=== PATIENT | female | born 1960 | race Caucasian/White ===

== ENCOUNTER 2016-09-25 07:30 | Observation (INO) | payer MEDICARE, OTHER ==
[~2016-09-25] VITALS: Ht 165.1 cm; Wt 63.0 kg
[~2016-09-25 07:30] MED LIST: CLON1TAB PO; ESCI20TA10 PO; LEVO100T PO; LITH450T PO; OLAN5TAB3 PO; PROG100C2; [UNRECOGNIZED DRUG - OTHER]
[2016-09-25] MEDS ORDERED: DIPHENHYDRAMINE 25 MG CAPSULE PO ONE (08:00)
[2016-09-25] MEDS ORDERED: DIPHENHYDRAMINE 25 MG CAPSULE ONE (08:01)
[2016-09-25 08:13] LABS: BLOOD UREA NITROGEN 13 mg/dL (7-18)
[2016-09-25 08:14] LABS: ACETAMINOPHEN < 2 mcg/mL (10-30)
[2016-09-25 08:29] LABS: DAU SCREEN DISCLAIMER
[2016-09-25] MEDS ORDERED: LORazepam 1MG TABLET PO ONE (09:00)
[2016-09-25] MEDS ORDERED: LORazepam 1MG TABLET ONE ×2 (09:03→13:02)
[2016-09-25] MEDS ORDERED: BISACODYL 10 MG SUPP PR PRN (13:30)
[2016-09-25] MEDS ORDERED: ONDANSETRON ODT 4 MG PO PRN (13:30)
[2016-09-25] MEDS ORDERED: DOCUSATE 100 MG CAPSULE PO PRN (13:30)
[2016-09-25] MEDS ORDERED: POLYETHYLENE GLYCOL 17 GM PACKET PO PRN (13:30)
[2016-09-25] MEDS ORDERED: LORazepam 2 MG/ML, 1ML IM PRN (14:00)
[2016-09-25 14:34] VITALS: BP 144/82
[2016-09-25 14:50] VITALS: BP 144/82
[2016-09-25] MEDS: OLANZAPINE 5 MG TABLET PO SCH (17:30)
[2016-09-25 20:00] VITALS: BP 128/76
[2016-09-25] MEDS: LORazepam 1MG TABLET PO PRN (20:50)
[2016-09-26] MEDS: LEVOTHYROXINE 100 MCG TABLET PO SCH (06:20)
[2016-09-26] MEDS: LORazepam 1MG TABLET PO PRN ×3 (07:11→20:16)
[2016-09-26] MEDS: OLANZAPINE 5 MG TABLET PO SCH ×2 (07:11→07:16)
[2016-09-26 08:15] VITALS: BP 107/76
[2016-09-26 10:04] VITALS: BP 128/83
[2016-09-26 19:40] VITALS: BP 112/72
[2016-09-27] MEDS: LEVOTHYROXINE 100 MCG TABLET PO SCH (05:18)
[2016-09-27 07:05] VITALS: BP 112/72
[2016-09-27] MEDS: OLANZAPINE 5 MG TABLET PO SCH (08:26)
[2016-09-27] MEDS: LORazepam 1MG TABLET PO PRN ×2 (09:31→17:39)
[2016-09-27 20:13] VITALS: BP 115/76
[2016-09-28] MEDS: LORazepam 1MG TABLET PO PRN (02:22)
[2016-09-28] MEDS: LEVOTHYROXINE 100 MCG TABLET PO SCH (05:46)
[2016-09-28 07:18] VITALS: BP 105/70
[2016-09-28] MEDS: OLANZAPINE 5 MG TABLET PO SCH ×2 (09:00→21:32)
[2016-09-28] MEDS ORDERED: LAMOTRIGINE 25 MG TABLET PO ONE (15:17)
[2016-09-28] MEDS ORDERED: OLANZAPINE 10 MG TABLET PO PRN (15:30)
[2016-09-28] MEDS ORDERED: OLANZAPINE 10 MG INJ IM PRN (15:30)
[2016-09-28] MEDS ORDERED: LORazepam 2 MG/ML, 1ML IM PRN (18:00)
[2016-09-28 20:50] VITALS: BP 148/92
[2016-09-29] MEDS: LEVOTHYROXINE 100 MCG TABLET PO SCH (05:28)
[2016-09-29 07:40] VITALS: BP 137/81
[2016-09-29] MEDS: OLANZAPINE 5 MG TABLET PO SCH (09:00)
[2016-09-29] MEDS ORDERED: LAMOTRIGINE 25 MG TABLET PO SCH (09:00)
== END 2016-09-29 11:48 ==
LOC: ED 07:43 → EDIP 11:51 → 3E 14:27
DX: F23 Brief psychotic disorder (principal); F31.63 Bipolar disorder, current episode mixed, severe, without psychotic features; E03.9 Hypothyroidism, unspecified; F41.9 Anxiety disorder, unspecified; F22 Delusional disorders; L01.00 Impetigo, unspecified; F12.90 Cannabis use, unspecified, uncomplicated; F17.200 Nicotine dependence, unspecified, uncomplicated; Z91.14 Patient's other noncompliance with medication regimen; Z91.5 Personal history of self-harm; Z90.710 Acquired absence of both cervix and uterus; Z82.0 Family history of epilepsy and other diseases of the nervous system
CPT/HCPCS: 36415; 80048; 80164; 80307; 80329; 81003; 82040; 84439; 84443; 85025; 99285; G0378; Q0163; G0480

== ENCOUNTER 2016-12-07 18:53 | Observation (INO) | payer MEDICARE ==
[~2016-12-07] VITALS: Ht 162.6 cm; Wt 55.0 kg
[2016-12-07 19:41] LABS: HEMATOCRIT 44.4 % (34.6-47.8); HEMOGLOBIN 14.9 g/dL (11.7-16.4); WHITE BLOOD COUNT 8.9 x10^3/uL (3.4-10)
[2016-12-07 19:51] LABS: ASPARTATE AMINO TRANSFERASE 14 U/L (15-37); BLOOD UREA NITROGEN 14 mg/dL (7-18)
[2016-12-07 19:53] LABS: DAU SCREEN DISCLAIMER
[2016-12-07 19:58] LABS: ACETAMINOPHEN < 2 mcg/mL (10-30)
[2016-12-07 20:04] LABS: PATH.CAST-FLAG NOT PRESENT; SPERM-FLAG NOT PRESENT; SRC-FLAG NOT PRESENT; XTAL-FLAG NOT PRESENT; YLC-FLAG NOT PRESENT
[2016-12-07] MEDS ORDERED: DIPHENHYDRAMINE 25 MG CAPSULE ONE (21:51)
[2016-12-07] MEDS ORDERED: DIPHENHYDRAMINE 25 MG CAPSULE PO ONE (22:00)
[2016-12-07] MEDS ORDERED: ZIPRASIDONE 20 MG INJ IM PRN (23:00)
[2016-12-07] MEDS ORDERED: DOCUSATE 100 MG CAPSULE PO PRN (23:00)
[2016-12-07] MEDS ORDERED: DIPHENHYDRAMINE 50 MG CAPSULE PO PRN (23:00)
[2016-12-07] MEDS ORDERED: ACETAMINOPHEN 325 MG TABLET ONE (23:41)
[2016-12-07] MEDS: ACETAMINOPHEN 325 MG TABLET PO PRN (23:44)
[2016-12-08 00:55] VITALS: BP 118/91
[2016-12-08] MEDS: ACETAMINOPHEN 325 MG TABLET PO PRN ×2 (04:13→11:15)
[2016-12-08 07:59] VITALS: BP 127/77
[2016-12-08] MEDS ORDERED: NICOTINE 14MG/24 HR PATCH.TD24 TD SCH (13:00)
[2016-12-08] MEDS ORDERED: DIPH50CA PO (13:02)
[2016-12-08] MEDS ORDERED: DOCU-131 PO (13:02)
[2016-12-08] MEDS ORDERED: ZIPR20VI IM (13:02)
[2016-12-08] MEDS ORDERED: ACET325T14 PO (13:02)
== END 2016-12-08 14:30 ==
LOC: ED 21:57 → EDIP 22:19 → 3E 12-08 00:18
PROVIDERS: ADMIT Hospitalist; ATTEND Hospitalist
DX: R45.851 Suicidal ideations (principal); F31.9 Bipolar disorder, unspecified; E03.9 Hypothyroidism, unspecified; F12.90 Cannabis use, unspecified, uncomplicated; F17.210 Nicotine dependence, cigarettes, uncomplicated; F23 Brief psychotic disorder; Z91.5 Personal history of self-harm; Z90.49 Acquired absence of other specified parts of digestive tract
CPT/HCPCS: 36415; 80053; 80307; 80329; 81001; 84439; 84443; 84703; 85025; 87086; 96372; 99285; G0378; J3486; Q0163; G0479; G0480